=== PATIENT | male | born 1965 | race Caucasian/White ===

== ENCOUNTER 2016-10-01 01:50 | Emergency (ER) | payer SELFPAY ==
[~2016-10-01] VITALS: Ht 177.8 cm; Wt 72.0 kg
[~2016-10-01 01:50] MED LIST: Z.0.NO CURRENT MEDS
[2016-10-01 01:53] VITALS: BP 140/64; PULSE 89; RESP 22; TEMP 98.1; O2SAT 97
[2016-10-01] MEDS ORDERED: DILA100C PO (01:53)
[2016-10-01] MEDS ORDERED: TRAM50TA PO (02:30)
[2016-10-01] MEDS ORDERED: traMADol HCL 50 MG TAB PO ONE (02:30)
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
== END 2016-10-01 02:49 | disposition home or self-care (01) ==
LOC: NEPE 01:50
DX: M25.571 Pain in right ankle and joints of right foot (principal); Z98.890 Other specified postprocedural states; Z72.0 Tobacco use
CPT/HCPCS: 99283

== ENCOUNTER 2016-12-10 22:12 | Emergency (ER) | payer SELFPAY ==
[~2016-12-10] VITALS: Ht 172.7 cm; Wt 68.2 kg
[~2016-12-10 22:12] MED LIST changes: +DILA100C PO; +TRAM50TA PO; -Z.0.NO CURRENT MEDS
[2016-12-10 22:18] VITALS: BP 123/80; PULSE 95; RESP 18; TEMP 98; O2SAT 95
[2016-12-10] MEDS ORDERED: SODIUM CHLORIDE 0.9% FLUSH 10 ML FLUSH IVF PRN (22:30)
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
[2016-12-10 22:44] LABS: AUTOMATED NEUTROPHIL # 2.3 TH/MM3 (1.8-7.7); BASOPHIL % 0.8 % (0.0-2.0); EOSINOPHIL # 0.2 TH/MM3 (0-0.4); EOSINOPHIL % 4.1 % (0.0-4.0); HEMATOCRIT 40.1 % (39.0-51.0); HEMO FLAGS DIFF FINAL; LYMPH % 39.5 % (9.0-44.0); MEAN CORPUSCULAR HEMOGLOBIN 31.8 PG (27.0-34.0); MEAN CORPUSCULAR HGB CONC 34.5 % (32.0-36.0); MONO % 9.8 % (0.0-8.0); NEUT % 45.8 % (16.0-70.0); PLATELET COUNT 192 TH/MM3 (150-450); RED BLOOD COUNT 4.37 MIL/MM3 (4.50-5.90); WHITE BLOOD COUNT 5.1 TH/MM3 (4.0-11.0)
[2016-12-10] MEDS ORDERED: KETOROLAC TROMETHAMINE 30 MG/ML (IVP) VIAL IV PUSH ONE (23:00)
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
[2016-12-10 23:07] LABS: ALT (GPT) 57 U/L (12-78); ANION GAP 12 MEQ/L (5-15); AST (GOT) 95 U/L (15-37); BICARBONATE 23.4 MEQ/L (21.0-32.0); BLOOD UREA NITROGEN 9 MG/DL (7-18); CHLORIDE 103 MEQ/L (98-107); GLOMERULAR FILTRATION RATE 94 ML/MIN (>89); POTASSIUM 3.1 MEQ/L (3.5-5.1); SODIUM (NA) 138 MEQ/L (136-145)
[2016-12-10 23:08] LABS: ALCOHOL 285 MG/DL (0-5)
[2016-12-10 23:10] LABS: ALKALINE PHOSPHATASE 116 U/L (45-117); TOTAL BILIRUBIN ADULT 0.3 MG/DL (0.2-1.0)
[2016-12-10 23:29] LABS: APTT (PATIENT) 22.4 SEC (24.3-30.1); PROTHROMBIN TIME - PATIENT 10.9 SEC (9.8-11.6)
[2016-12-10] MEDS ORDERED: POTASSIUM CHLORIDE 20 MEQ CONTROLLED RELEASE TAB PO ONE (23:30)
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
[2016-12-11 06:36] VITALS: BP 133/66
== END 2016-12-11 06:42 | disposition home or self-care (01) ==
LOC: NEPC 22:12
DX: S09.90XA Unspecified injury of head, initial encounter (principal); Y09 Assault by unspecified means; F10.929 Alcohol use, unspecified with intoxication, unspecified
CPT/HCPCS: 70450; 72100; 72125; 80053; 80307; 85025; 85610; 85730; 96374; 99285; J1885